=== PATIENT | male | born 1940 | race Caucasian/White ===

== ENCOUNTER 2021-12-13 11:32 | Outpatient (CLI) | payer MEDICARE, SELFPAY ==
--- NOTE | 2021-12-13 12:02 | CT_ITS ---
WS: [id number] CT ABDOMEN PELVIS TECHNIQUE: Noncontrast CT of the abdomen and pelvis with coronal and sagittal reformatted images. CLINICAL INFORMATION: GROSS HEMATURIA COMPARISON: None. DLP: 1249.[address] scans at [facility] use at least one of these dose optimization techniques: automated e xposure control; mA and/or kV adjustment per patient size (includes targeted exams where dose is matc hed to clinical indication); or iterative reconstruction. FINDINGS: Noncontrast kidneys demonstrate mild bilateral perinephric edema which can be seen with renal insuffi ciency. No obstructing renal or ureteral calculi. No hydronephrosis. Both ureters are decompressed. Diffuse thickening and irregularity of the dome of the bladder anteriorly with lobulation and soft ti ssue thickening at the urachus. Associated calcification. Recommend further evaluation with cystoscop y to evaluate for bladder neoplasm or infected diverticulum. This may represent an infected urachal r emnant/diverticulum or urachal neoplasm specifically adenocarcinoma. Prior prostatectomy or TURP. Sigmoid diverticulosis. No evidence of acute diverticulitis. Tiny fat-co ntaining umbilical hernia. Noncontrast liver is normal. Cholelithiasis. Small esophageal hiatal hernia. Lung bases are well aera rainer. Slight bibasilar atelectasis. Noncontrast pancreas is unremarkable. Adrenal glands are normal. N oncontrast spleen is normal. Retroaortic LEFT renal vein. Mild aortic calcification. No aneurysm. No periaortic or pelvic lymphadenopathy. No inguinal lymphadenopathy. Small amount of fluid along the RIGHT greater than LEFT proximal inguinal canals. Slight anterolisthesis L4 on L5. A few slight prom inent retrocrural lymph nodes measuring up [address]/CT kidney stone [id number] IMPRESSION: 1. Focal bladder wall thickening involving the anterior dome of the bladder at the urachus with soft tissue lobulation. A few associated calcifications with surrounding soft tissue induration. Recommend further evaluation with cystoscop y to assess for ureteral neoplasm or possibly infected urachal diverticulum. Ar ea of soft tissue thickening measures approximately 2.0 x 1.2 CM. Recommend uro logy consultation. 2. Induration in the surrounding anterior bladder with diffuse bladder wall th ickening extending into the space of Retzius. This may be due to cystitis or in fection but can be seen with tumor spread into the space of Retzius. 3. Noncontrast kidneys are unremarkable. Slight perinephric edema can be seen with renal insufficiency. No hydronephrosis. 4. No obstructing renal or ureteral calculi. 5. Cholelithiasis. This can be followed up with ultrasound. 6. Small esophageal hiatal hernia. 7. A few nonspecific slightly prominent retrocrural lymph nodes measuring up t o 9-10 mm
== END 2021-12-13 11:33 | disposition home or self-care (01) ==
PROVIDERS: PCP Family Medicine; Visit Provider Family Medicine
DX: R31.0 Gross hematuria (principal); K80.20 Calculus of gallbladder without cholecystitis without obstruction; K44.9 Diaphragmatic hernia without obstruction or gangrene
CPT/HCPCS: 74176